=== PATIENT | male | born 1945 | race Hispanic/Latino ===

== ENCOUNTER → 2017-11-02 | Outpatient (CLI) | payer OTHER ==
[~2017-11-02] MED LIST: ASPI-1197 PO; ATOR10TA PO; METO-391 PO; RIVA20TA PO
== END | disposition home or self-care (01) ==
LOC: OIH 09:08
PROVIDERS: ATTEND Internal Medicine
DX: I70.90 Unspecified atherosclerosis (principal); I10 Essential (primary) hypertension
CPT/HCPCS: 71046

== ENCOUNTER → 2017-12-02 | Outpatient (CLI) | payer OTHER | END | disposition home or self-care (01) | LOC: SHCH 10:28 | PROVIDERS: ATTEND Internal Medicine Cardiovascular Disease | DX: I10 Essential (primary) hypertension (principal); I35.0 Nonrheumatic aortic (valve) stenosis; I35.1 Nonrheumatic aortic (valve) insufficiency | CPT/HCPCS: 93306 ==

== ENCOUNTER → 2018-07-26 | Outpatient (CLI) | payer OTHER | END | disposition home or self-care (01) | LOC: SHCH 10:00 | PROVIDERS: ATTEND Internal Medicine Cardiovascular Disease | DX: I35.0 Nonrheumatic aortic (valve) stenosis (principal); I11.9 Hypertensive heart disease without heart failure; R00.0 Tachycardia, unspecified; Z95.0 Presence of cardiac pacemaker | CPT/HCPCS: 93306 ==

== ENCOUNTER 2018-10-06 08:32 | Observation (INO) | payer OTHER ==
[2018-10-04 11:15] VITALS: BP 148/61
[2018-10-04 11:28] LABS: BASOPHILS % (AUTO) 1.3 % (0.0-5.0); EOSINOPHILS % (AUTO) 4.8 % (0.0-8.0); HEMATOCRIT 46.3 % (42-54); LYMPHOCYTES % (AUTO) 33.7 % (21.0-51.0); MEAN CORPUSCULAR HEMOGLOBIN 32.3 pg (27.0-33.0); MEAN CORPUSCULAR VOLUME 94.8 fL (79-99); MONOCYTES % (AUTO) 9.6 % (3.0-13.0); NEUTROPHILS % (AUTO) 50.6 % (40.0-77.0); NUCLEATED RED BLOOD CELLS 0.1 % (0.0-0.19); PLATELET COUNT (AUTO) 225 K/uL (130-400); RED BLOOD CELL COUNT(AUTO) 4.88 MIL/uL (4.50-6.20); RED CELL DISTRIBUTION WIDTH 14.4 % (11.0-15.5); WHITE BLOOD COUNT (AUTO) 7.6 K/uL (4.8-10.8)
[2018-10-04 11:38] LABS: CREATININE 1.1 mg/dL (0.5-1.5); POTASSIUM 4.6 mmol/L (3.5-5.1)
[2018-10-04 12:12] LABS: INR 0.99 (0.85-1.15); PARTIAL THROMBOPLASTIN TIME 27.8 SEC (26.3-35.5); PROTHROMBIN TIME 10.4 SEC (9.6-11.6)
[~2018-10-06] VITALS: Ht 172.7 cm; Wt 119.1 kg
[2018-10-06] VITALS (11 sets, daily range): BP systolic 109–148; BP diastolic 54–69
[~2018-10-06 08:32] MED LIST changes: +ASCO10007 PO; -ASPI-1197 PO; -ATOR10TA PO; +ATOR40TA71 PO; +CHOL200026 PO; +FISH1CAP63 PO; +GLUC1TAB21 PO; +MAGN400T40 PO; +MULT1TAB70 PO; +VITA1TAB22 PO
[2018-10-06] MEDS ORDERED: SODIUM CHLORIDE 0.9% 1000ML 1,000 ML IV ONE (09:53)
[2018-10-06] MEDS ORDERED: IODIXANOL 320 MG/ML 100 ML VIAL ONE (11:06)
[2018-10-06] MEDS ORDERED: MEPERIDINE-PF 25 MG/ML SYG ONE ×2 (11:06→12:31)
[2018-10-06] MEDS ORDERED: MIDAZOLAM HCL 1 MG/ML 2ML VIAL ONE ×3 (11:06→12:31)
[2018-10-06] MEDS ORDERED: VANCOMYCIN 1GM+NS 250ML 500 ML IV ONE (11:06)
[2018-10-06] MEDS ORDERED: LIDOCAINE HCL 1% MDV 50ML VIAL ONE (11:06)
[2018-10-06] MEDS ORDERED: BUPIVACAINE/PF 0.25% 30ML VIAL IJ ONE (11:08)
[2018-10-06] MEDS ORDERED: OCTYL 2-CYANOACRYLATE 1 EACH TP ONE (12:30)
[2018-10-06] MEDS ORDERED: ACETAMINOPHEN 325 MG TAB PO PRN (13:15)
[2018-10-06] MEDS ORDERED: ACETAMINOPHEN-CODEINE 300/30MG TAB PO PRN (13:15)
--- NOTE | 2018-10-06 15:15 | NUR ---
REPORT REPORT GIVEN TO HAVEN CORRALES
--- NOTE | 2018-10-06 15:45 | NUR ---
REPORT REPORT GIVEN TO NURA RN AT TELEMETRY FLOOR,
--- NOTE | 2018-10-06 15:55 | NUR ---
TRANSFER PT TRANSFERED TO ROOM 226, PT AWAKE AND ALERT IN BED, NO DISTRESS NOTED. DRESSING TO LEFT UPPER CHEST DRY AND INTACT, SPOUSE ACCOMPANIED PATIENT
--- NOTE | 2018-10-06 16:00 | NUR ---
STATUS PT RECEIVED FROM DAY VIA BED. S/P BiV ICD UPGRADE BY DR Yesenia CASAS. LT UPPER CHEST PRESSURE DSG DRY & INTACT. NO DRAINAGE NOTED. SLING TO LT ARM. LT ARM PRECAUTIONS REINFORCED. STATES UNDERSTANDING. INFORMED TO MAINTAIN BEDREST UNTIL AM. [place]. NO SOB. NO DISTRESS NOTED. DENIES INCISIONAL PAIN. TELE: A PACED 60s. ORIENTED TO RM. INSTRUCTED TO CALL FOR ASSISTANCE. CALL ZAFAR W/IN REACH. @ BEDSIDE.
--- NOTE | 2018-10-06 20:50 | NUR ---
ASSESSMENT PATIENT IS AAOX3. PATIENT DENIES PAIN AND SHORTNESS OF BREATH. ON ROOM AIR. RESPIRATIONS UNLABORED. AV PACED HR 72. S/P BIV ICD UPGRADE. LT CHEST DRESSING DRY AND INTACT. SLING IN PLACE. REMINDED PATIENT OF LT ARM RESTRICTIONS. PATIENT VERBALIZED UNDERSTANDING. SEE DOCUMENTATION FOR FULL ASSESSMENT. CALL LIGHT WITHIN REACH. INSTRUCTED PATIENT TO CALL IF ASSISTANCE IS NEEDED.
[2018-10-06] MEDS: METOPROLOL SUCCINATE 50 MG PO SCH (20:52)
[2018-10-06] MEDS: MULTIVITAMIN TABLET PO SCH (20:53)
[2018-10-06] MEDS ORDERED: ATORVASTATIN CALCIUM 40 MG TABLET PO SCH (21:00)
[2018-10-06] MEDS ORDERED: LOSARTAN 50 MG TABLET PO SCH (21:00)
[2018-10-06] MEDS ORDERED: VANCOMYCIN 1GM+NS 250ML 250 ML IV SCH ×2 (21:00→23:30)
[2018-10-07 03:00] VITALS: BP 133/73
[2018-10-07 07:06] LABS: APPEARANCE,URINE Clear (CLEAR); BILIRUBIN,URINE Negative (NEGATIVE); COLOR,URINE Yellow (YELLOW); GLUCOSE, URINE (UA) Negative (NEGATIVE); KETONES,URINE Negative (NEGATIVE); LEUKOCYTE ESTERASE ,URINE Negative (NEGATIVE); NITRATE,URINE Negative (NEGATIVE); OCCULT BLOOD,URINE Negative (NEGATIVE); PROTEIN,URINE Negative (NEGATIVE); UROBILINOGEN,URINE 0.2 mg/dL (0.2-1.0)
--- NOTE | 2018-10-07 07:45 | NUR ---
AM ASSESSMENT PT LAYING IN BED, HOB ELEVATED 30 DEGREES, WATCHING TV. [place]. A/O X 3. NO SOB. NO DISTRESS NOTED. DENIES CHEST PAIN OR DISCOMFORT. DENIES PALPITATIONS. DENIES INCISIONAL PAIN. C/O OF "TWITCHING" TO RT SIDE, MD AWARE. PER DR Yesenia CASAS, DEVICE TO BE CHECKED/ADJUSTED @ OFFICE IF TWITCHING PERSISTS. TELE: A PACED 60s. DENIES N/V AND/OR DIARRHEA. UP W/ASSISTANCE. LT ARM PRECAUTIONS REINFORCED. STATES UNDERSTANDING. LT UPPER CHEST DSG DRY & INTACT. NO BLEEDING, NO HEMATOMA NOTED. INSTRUCTED TO CALL FOR ASSISTANCE. CALL ZAFAR W/IN REACH.
[2018-10-07 08:23] VITALS: BP 130/72
[2018-10-07] MEDS: MULTIVITAMIN TABLET PO SCH (08:50)
[2018-10-07] MEDS: METOPROLOL SUCCINATE 50 MG PO SCH (08:51)
[2018-10-07] MEDS ORDERED: FISH OIL 1000 MG/CAP PO SCH (09:00)
[2018-10-07] MEDS ORDERED: ASCORBIC ACID 500 MG TAB PO SCH (09:00)
[2018-10-07] MEDS ORDERED: ***HM***(Cholecalciferol (Vitamin D3) (Vitamin D3) 2,000 UNIT) PO SCH (09:00)
[2018-10-07] MEDS ORDERED: RIVAROXABAN 20 MG TABLET PO SCH (09:00)
[2018-10-07] MEDS ORDERED: MAGNESIUM OXIDE 400 MG TABLET PO SCH (09:00)
[2018-10-07] MEDS ORDERED: VITAMIN B COMPLEX 1 CAPSULE PO SCH (09:00)
[2018-10-07] MEDS ORDERED: GLUCOSAMINE-CHONDROITIN PO SCH (09:00)
--- NOTE | 2018-10-07 10:25 | NUR ---
DISCHARGE VERBAL & WRITTEN DISCHARGE INSTRUCTION REVIEWED & GIVEN TO PT & . PROPER CARE & ACTIVITY AFTER BiV ICD UPGRADE REVIEWED & REINFORCED. NEW PRESCRIBED MEDICATIONS REVIEWED. PRESCRIPTION GIVEN TO PT; SIGNED COPY PLACED IN CHART. F/U APPT INFO REVIEWED & HIGHLIGHTED ON DC PAPERWORK. IV DISCONTINUED. TELE KEVIN REMOVED. PT & TO GATHER PERSONAL BELONGINGS. WILL NOTIFY STAFF WHEN READY TO BE TAKEN TO PRIVATE VEHICLE.
--- NOTE | 2018-10-07 10:45 | NUR ---
DISCHARGE PT TAKEN TO PRIVATE VEHICLE VIA WC BY Theodore BOWMAN PCP, ACCOMPANIED BY . NO DISTRESS NOTED.
== END 2018-10-07 10:48 | disposition home or self-care (01) ==
LOC: DAH 08:32 → DAHIP 08:33 → 2DH 16:03
PROVIDERS: ADMIT Internal Medicine; ATTEND Internal Medicine
DX: Z45.02 Encounter for adjustment and management of automatic implantable cardiac defibrillator (principal); I44.1 Atrioventricular block, second degree; D68.59 Other primary thrombophilia; E66.01 Morbid (severe) obesity due to excess calories; E78.5 Hyperlipidemia, unspecified; G47.30 Sleep apnea, unspecified; I11.0 Hypertensive heart disease with heart failure; I50.42 Chronic combined systolic (congestive) and diastolic (congestive) heart failure; I25.10 Atherosclerotic heart disease of native coronary artery without angina pectoris; I35.0 Nonrheumatic aortic (valve) stenosis; I42.9 Cardiomyopathy, unspecified; I48.0 Paroxysmal atrial fibrillation; I82.501 Chronic embolism and thrombosis of unspecified deep veins of right lower extremity; I87.009 Postthrombotic syndrome without complications of unspecified extremity; I87.2 Venous insufficiency (chronic) (peripheral); Z82.49 Family history of ischemic heart disease and other diseases of the circulatory system; Z83.3 Family history of diabetes mellitus; Z86.711 Personal history of pulmonary embolism; Z95.810 Presence of automatic (implantable) cardiac defibrillator; Z79.899 Other long term (current) drug therapy
CPT/HCPCS: 33225; 33264; 36415; 71046; 80048; 81003; 82948; 85025; 85610; 85730; 87088; 93005; 96365; 96366; A4606; C1769 ×2; C1882; C1894; C1900; G0378 ×26; J2175 ×2; J2250 ×3; J3370 ×2; J3490 ×2; J7030; Q9967; 99156; 99157

== ENCOUNTER → 2019-08-23 | Outpatient (CLI) | payer OTHER | END | disposition home or self-care (01) | LOC: OIH 10:05 | PROVIDERS: ATTEND Internal Medicine | DX: I51.7 Cardiomegaly (principal); I10 Essential (primary) hypertension; Z95.0 Presence of cardiac pacemaker | CPT/HCPCS: 71045 ==

== ENCOUNTER → 2019-09-22 | Outpatient (CLI) | payer OTHER | END | disposition home or self-care (01) | LOC: SHCH 11:04 | PROVIDERS: ATTEND Internal Medicine Cardiovascular Disease | DX: I08.0 Rheumatic disorders of both mitral and aortic valves (principal) | CPT/HCPCS: 93306; 93356 ==

== ENCOUNTER → 2020-10-02 | Outpatient (CLI) | payer OTHER ==
[~2020-10-02] MED LIST changes: +ASCO100031 PO; -ASCO10007 PO; +MULT-660 PO; -MULT1TAB70 PO
== END | disposition home or self-care (01) ==
LOC: SHCH 15:01
PROVIDERS: ATTEND Internal Medicine Cardiovascular Disease
DX: I65.23 Occlusion and stenosis of bilateral carotid arteries (principal); I35.0 Nonrheumatic aortic (valve) stenosis; R09.89 Other specified symptoms and signs involving the circulatory and respiratory systems; R01.1 Cardiac murmur, unspecified
CPT/HCPCS: 93306; 93356; 93880

== ENCOUNTER 2021-10-01 09:02 | Day surgery (SDC) | payer OTHER ==
[2021-09-26 10:53] LABS: BASOPHILS % (AUTO) 0.8 % (0.0-5.0); LYMPHOCYTES % (AUTO) 24.6 % (21.0-51.0); MEAN CORPUSCULAR HEMOGLOBIN 30.1 pg (27.0-33.0); MEAN CORPUSCULAR HGB CONC 31.7 g/dL (32.0-36.0); MEAN CORPUSCULAR VOLUME 94.9 fL (79-99); MONOCYTES % (AUTO) 10.2 % (3.0-13.0); NEUTROPHILS % (AUTO) 61.9 % (40.0-77.0); PLATELET COUNT (AUTO) 295 K/uL (130-400); RED BLOOD CELL COUNT(AUTO) 4.95 MIL/uL (4.50-6.20); RED CELL DISTRIBUTION WIDTH 14.4 % (11.0-15.5); WHITE BLOOD COUNT (AUTO) 9.7 K/uL (4.8-10.8)
[2021-09-26 10:55] LABS: APPEARANCE,URINE Clear (CLEAR); BILIRUBIN,URINE Negative (NEGATIVE); COLOR,URINE Dark Yellow (YELLOW); GLUCOSE, URINE (UA) Negative (NEGATIVE); KETONES,URINE Negative (NEGATIVE); LEUKOCYTE ESTERASE ,URINE Trace (NEGATIVE); NITRATE,URINE Negative (NEGATIVE); OCCULT BLOOD,URINE Negative (NEGATIVE); PROTEIN,URINE Negative (NEGATIVE)
[2021-09-26 11:03] LABS: CREATININE 1.1 mg/dL (0.5-1.5); INR 1.06 (0.85-1.15); POTASSIUM 4.3 mmol/L (3.5-5.1); PROTHROMBIN TIME 11.5 SEC (9.6-11.6)
[2021-09-26 11:05] LABS: PARTIAL THROMBOPLASTIN TIME 56.5 SEC (26.3-35.5)
[2021-09-26 11:13] LABS: BACTERIA,URINE Rare /HPF (None Seen); RBC,URINE 0-1 /HPF (0-1); SQUAMOUS EPITHELIAL CELL,UR Rare /HPF (0-2); WBC,URINE 0-1 /HPF (0-1)
[2021-09-30 13:46] VITALS: BP 120/73
[2021-10-01] VITALS (10 sets, daily range): BP systolic 95–183; BP diastolic 62–84
[~2021-10-01] VITALS: Ht 172.7 cm; Wt 109.3 kg
[~2021-10-01 09:02] MED LIST changes: -ASCO100031 PO; +ATOR10 PO; -ATOR40TA71 PO; -CHOL200026 PO; -FISH1CAP63 PO; -GLUC1TAB21 PO; -MAGN400T40 PO; -METO-391 PO; +METO-408 PO; -MULT-660 PO; -VITA1TAB22 PO
[2021-10-01] MEDS ORDERED: 0.9%NACL 1000ML 1,000 ML IV ONE (09:56)
[2021-10-01] MEDS ORDERED: IOHEXOL 350 MG/ML 100ML INFUS..BTL IV ONE ×2 (12:37→13:37)
[2021-10-01] MEDS ORDERED: HEPARIN 10,000 UNIT/10ML (1,000 UNIT/ML) VIAL ONE (12:37)
[2021-10-01] MEDS ORDERED: MIDAZOLAM HCL 1 MG/ML 2ML VIAL ONE ×2 (12:37→13:03)
[2021-10-01] MEDS ORDERED: IOHEXOL-350 50ML VIAL IV ONE (12:37)
[2021-10-01] MEDS ORDERED: MEPERIDINE-PF 25 MG/ML SYG ONE ×2 (12:37→13:03)
[2021-10-01] MEDS ORDERED: SODIUM BICARB 50MEQ 50ML VIAL 50 ML ONE (12:37)
[2021-10-01] MEDS ORDERED: LIDOCAINE HCL 400MG/20ML VIAL ONE (12:38)
[2021-10-01] MEDS ORDERED: 0.9%NACL 10ML VIAL IVP SCH (14:30)
== END 2021-10-01 18:25 | disposition home or self-care (01) ==
LOC: DAH 09:02
PROVIDERS: ATTEND Internal Medicine Cardiovascular Disease
DX: I35.0 Nonrheumatic aortic (valve) stenosis (principal); I25.10 Atherosclerotic heart disease of native coronary artery without angina pectoris; Q24.5 Malformation of coronary vessels; I11.0 Hypertensive heart disease with heart failure; I50.42 Chronic combined systolic (congestive) and diastolic (congestive) heart failure; I42.9 Cardiomyopathy, unspecified; M19.90 Unspecified osteoarthritis, unspecified site; E78.5 Hyperlipidemia, unspecified; E66.9 Obesity, unspecified; Z68.37 Body mass index [BMI] 37.0-37.9, adult; Z88.0 Allergy status to penicillin; Z86.718 Personal history of other venous thrombosis and embolism; Z79.01 Long term (current) use of anticoagulants
CPT/HCPCS: 36415; 71045; 80048; 81001; 85025; 85610; 85730; 93005; 93460; A4215; A4216; A4221; A4222; A4223 ×3; A4606; A4663; C1760; C1769 ×5; C1893; C1894 ×3; J1644; J2175 ×2; J2250 ×2; J3490 ×2; J7030; Q9965; Q9967 ×2; 99156; 99157

== ENCOUNTER → 2021-11-05 | Outpatient (CLI) | payer OTHER ==
[~2021-11-05] MED LIST changes: +IOHEXOL 350 MG/ML 100ML INFUS..BTL IV ONE
== END | disposition home or self-care (01) ==
LOC: RAH 08:18
PROVIDERS: ATTEND Internal Medicine Cardiovascular Disease
DX: I25.10 Atherosclerotic heart disease of native coronary artery without angina pectoris (principal); I77.810 Thoracic aortic ectasia; I35.0 Nonrheumatic aortic (valve) stenosis; K76.0 Fatty (change of) liver, not elsewhere classified; I70.8 Atherosclerosis of other arteries; I72.3 Aneurysm of iliac artery; Z95.0 Presence of cardiac pacemaker
CPT/HCPCS: 74174; 75574; Q9967

== ENCOUNTER 2021-11-26 14:27 | Emergency (ER) | payer OTHER ==
[~2021-11-26] VITALS: Ht 172.7 cm; Wt 108.9 kg
[~2021-11-26 14:27] MED LIST changes: -IOHEXOL 350 MG/ML 100ML INFUS..BTL IV ONE
[2021-11-26 15:54] LABS: BASOPHILS % (AUTO) 0.4 % (0.0-5.0); EOSINOPHILS % (AUTO) 2.3 % (0.0-8.0); HEMATOCRIT 46.6 % (42-54); LYMPHOCYTES % (AUTO) 25.5 % (21.0-51.0); MEAN CORPUSCULAR HEMOGLOBIN 29.5 pg (27.0-33.0); MEAN CORPUSCULAR HGB CONC 32.2 g/dL (32.0-36.0); MEAN CORPUSCULAR VOLUME 91.7 fL (79-99); MONOCYTES % (AUTO) 10.1 % (3.0-13.0); NEUTROPHILS % (AUTO) 61.4 % (40.0-77.0); PLATELET COUNT (AUTO) 216 K/uL (130-400); RED BLOOD CELL COUNT(AUTO) 5.08 MIL/uL (4.50-6.20); RED CELL DISTRIBUTION WIDTH 14.6 % (11.0-15.5); WHITE BLOOD COUNT (AUTO) 9.7 K/uL (4.8-10.8)
[2021-11-26 16:05] LABS: POTASSIUM 4.1 mmol/L (3.5-5.1)
[2021-11-26 16:08] LABS: INR 1.07 (0.85-1.15); PROTHROMBIN TIME 11.6 SEC (9.6-11.6)
[2021-11-26 16:09] LABS: BILIRUBIN,TOTAL 0.8 mg/dL (0.2-1.0); PARTIAL THROMBOPLASTIN TIME 31.9 SEC (26.3-35.5)
[2021-11-26] MEDS ORDERED: RIVAROXABAN 15 MG TABLET PO ONE (16:30)
[2021-11-26] MEDS ORDERED: RIVAROXABAN 20 MG TABLET ONE (16:50)
[2021-11-26 17:12] VITALS: BP 136/87
== END 2021-11-26 17:37 | disposition home or self-care (01) ==
LOC: EDH 14:27
DX: L03.115 Cellulitis of right lower limb (principal); I82.501 Chronic embolism and thrombosis of unspecified deep veins of right lower extremity; I35.0 Nonrheumatic aortic (valve) stenosis; Z88.0 Allergy status to penicillin; Z79.899 Other long term (current) drug therapy; Z95.810 Presence of automatic (implantable) cardiac defibrillator; Z98.890 Other specified postprocedural states
CPT/HCPCS: 36415; 80053; 85025; 85610; 85730; 93970

== ENCOUNTER 2022-01-06 11:50 | Emergency (ER) | payer OTHER ==
[~2022-01-06] VITALS: Ht 172.7 cm; Wt 108.9 kg
[2022-01-06 11:55] VITALS: BP 114/62
== END 2022-01-06 12:40 | disposition home or self-care (01) ==
LOC: EDH 11:50
DX: I83.892 Varicose veins of left lower extremity with other complications (principal); Z88.0 Allergy status to penicillin; Z79.899 Other long term (current) drug therapy; Z98.890 Other specified postprocedural states

== ENCOUNTER → 2022-03-12 | Outpatient (CLI) | payer OTHER | END | disposition home or self-care (01) | LOC: RAH 08:13 | PROVIDERS: ATTEND Internal Medicine | DX: K76.0 Fatty (change of) liver, not elsewhere classified (principal); R10.11 Right upper quadrant pain | CPT/HCPCS: 76700 ==

== ENCOUNTER → 2022-04-28 | Outpatient (CLI) | payer OTHER | END | disposition home or self-care (01) | LOC: OIH 14:07 | PROVIDERS: ATTEND Internal Medicine Cardiovascular Disease | DX: I08.0 Rheumatic disorders of both mitral and aortic valves (principal); I11.9 Hypertensive heart disease without heart failure; E78.5 Hyperlipidemia, unspecified; Z95.2 Presence of prosthetic heart valve | CPT/HCPCS: 93306 ==

== ENCOUNTER → 2023-08-25 | Outpatient (CLI) | payer OTHER | END | disposition home or self-care (01) | LOC: SHCH 09:32 | PROVIDERS: ATTEND Internal Medicine Cardiovascular Disease | DX: I08.0 Rheumatic disorders of both mitral and aortic valves (principal); I10 Essential (primary) hypertension; E78.5 Hyperlipidemia, unspecified | CPT/HCPCS: 93306 ==

== ENCOUNTER 2025-01-19 12:11 | Inpatient (IN) | payer OTHER ==
[~2025-01-19] VITALS: Ht 160 cm; Wt 101.2 kg
--- NOTE | 2025-01-19 12:23 | EKG ---
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
[2025-01-19 12:51] LABS: BASOPHILS # (AUTO) 0.08 K/uL (0.00-0.20); BASOPHILS % (AUTO) 0.7 % (0.0-5.0); EOSINOPHILS # (AUTO) 0.38 K/uL (0.00-0.70); EOSINOPHILS % (AUTO) 3.5 % (0.0-8.0); HEMATOCRIT 44.6 % (42-54); IMMATURE GRANULOCYTE ABSOLUTE 0.07 K/uL (0-1); LYMPHOCYTES # (AUTO) 1.8 K/uL (1.0-4.8); LYMPHOCYTES % (AUTO) 16.3 % (21.0-51.0); MEAN CORPUSCULAR HEMOGLOBIN 30.5 pg (27.0-33.0); MEAN CORPUSCULAR HGB CONC 32.5 g/dL (32.0-36.0); MEAN CORPUSCULAR VOLUME 93.7 fL (79-99); MONOCYTES # (AUTO) 0.7 K/uL (0.1-1.0); MONOCYTES % (AUTO) 6.3 % (3.0-13.0); NEUTROPHILS # (AUTO) 7.9 K/uL (1.8-7.7); NEUTROPHILS % (AUTO) 72.6 % (40.0-77.0); PLATELET COUNT (AUTO) 340 K/uL (130-400); RED BLOOD CELL COUNT(AUTO) 4.76 MIL/uL (4.50-6.20); RED CELL DISTRIBUTION WIDTH 14.7 % (11.0-15.5); WHITE BLOOD COUNT (AUTO) 10.9 K/uL (4.8-10.8)
--- NOTE | 2025-01-19 12:57 | HMCIMG ---
Exam Type: CHEST 1VW Clinical Information: CHEST PAIN Comparison: None Findings: The lungs are clear of infiltrates. The heart is enlarged in size. The bony and soft tissue structures of the chest are unremarkable. Left cardiac pacemaker is noted with leads in place. Impression: Clear lungs.
[2025-01-19 13:04] LABS: CREATININE 1.1 mg/dL (0.5-1.3); POTASSIUM 4.9 mmol/L (3.5-5.1)
[2025-01-19 13:15] LABS: B-TYPE NATRIURETIC PEPTIDE 285 pg/mL (0-100)
--- NOTE | 2025-01-19 13:46 | ERN ---
ED Note History of Present Illness Stated Complaint: POSSIBLE HEART ATTACK Chief Complaint: Chest Pain Time Seen by MD: 12:16 Time Seen by Midlevel: 12:18 Dictation: 79-year-old male with a history of atrial fibrillation, pacemaker/defibrillator, cholesterol, high blood pressure coming in with complaints of diaphoretic, chest pain in bilateral arm weakness and right arm pain onset prior to arrival. Patient states pain was pressure-like. Patient states he was just walking to his car with the chest pain started. 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 Patient is currently not undergoing any treatment. Allergies: Coded Allergies: Penicillins (Unverified Allergy, Unknown, 01/08/16) Home Meds Reported Medications Metoprolol Succinate (Metoprolol Succinate) 25 Mg Tab.er.24h, 25 MG PO BID, TAB 09/30/21 Atorvastatin Calcium (LIPITOR) 10 Mg Tab, 10 MG PO DAILY, TAB 09/30/21 Rivaroxaban (Xarelto) 20 Mg Tablet, 20 MG PO HS, TAB 10/04/18 Past Medical History Past Medical History: A-Fib, CAD, Cancer, High Cholesterol, Hypertension Additional Past Medical Hx: BLOOD THINNERS, obesity Surgical History: Pacer/AICD, Other Surgical History Other: PENILE CA, AORTIC VALVE, KNEE, Family History: Negative Social History: Negative, Lives with family Review of System Dictation Constitutional: Negative for fever,chills, and weight loss Eyes: Negative for injury, pain,redness, and discharge ENT: Negative for injury,pain or swelling Cardiovascular: Complaining of chest pain Respiratory: Complaining of cough Abdomen/GI: Negative for abdominal pain, nausea, vomiting, diarrhea, and constipation Back: Negative for injury and pain : Negative for injury, bleeding and discharge MS/Extremity: Negative for injury and deformity Skin: Negative for rash, and discoloration Neuro: Negative for headache, weakness, numbness, tingling, and seizure Psych: Negative for suicide ideation, homicidal ideation, and hallucinations Review of Systems: was completed Initial Vital Sign VS Vital Signs Date Time Temp Pulse Resp B/P (MAP) Pulse Ox O2 Delivery O2 Flow Rate FiO2 01/19/25 12:18 97.3 79 20 132/71 99 Room Air 0 01/19/25 13:33 21 Physical Exam Dictation General: awake, alert, NAD Head/Face: Normocephalic, atraumatic Eyes: PERRL, EOMI, vision at baseline ENT: oral cavity clear, TMs clear, no signs of infection Neck: Trachea midline, supple, no nuchal rigidity Cardiovascular: RRR, normal S1/S2, No MRGs, no JVD Respiratory: CTAB, no respiratory distress, No rales or wheezes Abdomen: Soft, non-tender, non-distended, normal bowel sounds, no guarding or rebound. Skin: Warm, dry, normal turgor, no rash MS/Extremity: Pulses equal, no cyanosis, neurovascular intact, FROM Neuro: COAx4, GCS 15, strength 5/5, CN 2-12 intact, normal cerebellar exam, normal gait, Psych: Normal behavior, mood, and affect normal Results (Laboratory/Radiology) Laboratory/Radiology Laboratory Tests Test 01/19/25 12:41 White Blood Count 10.9 K/uL (4.8-10.8) H Red Blood Count 4.76 MIL/uL (4.50-6.20) Hemoglobin 14.5 g/dL (14.0-18.0) Hematocrit 44.6 % (42-54) Mean Corpuscular Volume 93.7 fL (79-99) Mean Corpuscular Hemoglobin 30.5 pg (27.0-33.0) Mean Corpuscular Hemoglobin Concent 32.5 g/dL (32.0-36.0) Red Cell Distribution Width 14.7 % (11.0-15.5) Platelet Count 340 K/uL (130-400) Mean Platelet Volume 10.3 fL (7.5-10.5) Immature Granulocyte % (Auto) 0.6 % (0-1) Neutrophils (%) (Auto) 72.6 % (40.0-77.0) Lymphocytes (%) (Auto) 16.3 % (21.0-51.0) L Monocytes (%) (Auto) 6.3 % (3.0-13.0) Eosinophils (%) (Auto) 3.5 % (0.0-8.0) Basophils (%) (Auto) 0.7 % (0.0-5.0) Neutrophils # (Auto) 7.9 K/uL (1.8-7.7) H Lymphocytes # (Auto) 1.8 K/uL (1.0-4.8) Monocytes # (Auto) 0.7 K/uL (0.1-1.0) Eosinophils # (Auto) 0.38 K/uL (0.00-0.70) Basophils # (Auto) 0.08 K/uL (0.00-0.20) Absolute Immature Granulocyte (auto 0.07 K/uL (0-1) Nucleated Red Blood Cells 0.0 % (0.0-0.19) Sodium Level 140 mmol/L (136-145) Potassium Level 4.9 mmol/L (3.5-5.1) Chloride Level 103 mmol/L (101-111) Carbon Dioxide Level 27 mmol/L (21-32) Blood Urea Nitrogen 16 mg/dL (7-18) Creatinine 1.1 mg/dL (0.5-1.3) Glomerular Filtration Rate Calc 68 mL/min (>90) Random Glucose 131 mg/dL (70-105) H Total Calcium 9.1 mg/dL (8.5-10.1) Total Creatine Kinase 66 U/L (21-232) # Troponin I High Sensitivity 20 ng/L (4-75) B-Type Natriuretic Peptide 285 pg/mL (0-100) H Labs Reviewed?: Yes ED Course ED Course Orders Procedure Category Date Status Time Vital Signs Per CPOE 01/19/25 Transmitted Routine 12:18 B-Type Natriuretic LAB 01/19/25 Complete Peptide 12:18 Chest 1vw RAD 01/19/25 Resulted 12:18 12 Lead Ekg Tracing- EKG 01/19/25 Complete Technical 12:18 Oxygen By Nc/Pulse Ox CPOE 01/19/25 Transmitted 12:18 Maintain Iv CPOE 01/19/25 Transmitted 12:18 Iv Insertion CPOE 01/19/25 Transmitted 12:18 Cardiac Monitoring CPOE 01/19/25 Transmitted 12:18 Pulse Oximetry With CPOE 01/19/25 Transmitted Vs And Prn 12:18 Cbc With Differential LAB 01/19/25 Complete 12:18 Activity: Br W/Brp CPOE 01/19/25 Transmitted With Assist 12:18 Creatine Kinase, Total LAB 01/19/25 Complete 12:18 Troponin I High LAB 01/19/25 Complete Sensitivity 12:18 Urinalysis Profile LAB 01/19/25 Logged 12:18 Basic Metabolic Panel LAB 01/19/25 Complete 12:18 Nitroglycerin 0.4mg PHA 01/19/25 In Process Sl Tab (Nitrostat) 14:00 Admit Orders ADM 01/19/25 Transmitted 14:01 Current Medications Medications (Trade) Dose Ordered Sig/Arvind Route PRN Reason Start Time Stop Time Status Last Admin Dose Admin Nitroglycerin (Nitrostat) 0.4 mg AD PRN SL CHEST PAIN 01/19/25 14:00 02/18/25 13:59 Vital Signs Date Time Temp Pulse Resp B/P (MAP) Pulse Ox O2 Delivery O2 Flow Rate FiO2 01/19/25 13:33 81 18 153/90 98 Room Air* 0 21 01/19/25 12:18 97.3 79 20 132/71 99 Room Air 0 HEART Score Response (Comments) Value History: Moderate suspicion (+1) 1 EKG: Normal 0 Age: > 65yrs (+2) 2 Risk Factors: 3+ risk factors (+2) 2 Initial Troponin: Normal limit (0) 0 Total 5 Medical Decision Making MDM MDM: 79-year-old male with a history of atrial fibrillation, pacemaker/defibrillator, cholesterol, high blood pressure coming in with complaints of diaphoretic, chest pain in bilateral arm weakness and right arm pain onset prior to arrival. Patient states pain was pressure-like. Patient states he was just walking to his car with the chest pain started. 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 Patient is c urrently not undergoing any treatment.CBC shows mild leukocytosis of 10, no anemia, no thrombocytopenia. Chemistry shows no electrolyte abnormality. BNP slightly elevated at 285. Chest x-ray shows no acute finding. Troponin is negative EKGs did not show any ST elevations or reciprocal changes. Heart score is five. Patient will be admitted to rule out ACS. Pending pacemaker to be interrogated.Spoke to taj Deshpande to admit. Differential diagnosis: ACS, costochondritis, pleurisy Rationale: Tests considered and ordered secondary to shared decision making include: labs, ECG and radiology Previous outside records reviewed: Old ER visits. Risk of complication and/or morbidity or mortality of patient management: None Medications-Per medication reconciliation Need for hospitalization: Patient does meet criteria for hospitalization. Need for emergency major/minor surgery: No There are no social concerns with this patient. Prescription drug management Prescriptions will include symptomatic care Patient's prior external medical records from other ER visits were reviewed by me as indicated. Prior testing and results from previous visits were reviewed. Prior tests were taken into account with medical decision making and resource utilization, independent historian/historians were used to obtain complete medical history. I independently interpreted the test that were performed, results were reviewed by me and considered findings on radiology if ordered. Medical management and examination interpretation discussions were had by me with other qualified healthcare professionals as indicated for the patient's care. DX & DISP Disposition: Inpatient Decision to Admit Date: Jan 19, 2025 Decision to Admit Time: 14:03 Departure Impression: Primary Impression: Chest pain Condition: Stable Referrals: STACIE CASTANEDA MD (PCP) I have reviewed the case, and I agree with, Diagnosis and Plan ISAIAH CRUMP NP Jan 19, 2025 13:46
--- NOTE | 2025-01-19 13:58 | NUR ---
[facility] CALL[facility], STATES THEY WILL FORWARD CALL TO FOOD INSPECTOR SO THAT HE MAY INTERROGATE DEVICE.
[2025-01-19] MEDS ORDERED: NITROGLYCERIN 0.4 MG SL TAB SL PRN (14:00)
--- NOTE | 2025-01-19 14:40 | NUR ---
[facility] DEVICE REP AT BEDSIDE, INTERROGTING DEVICE
--- NOTE | 2025-01-19 16:07 | NUR ---
DCP: HOME Pt lives with Monie Squires [phone] in their home. Pt uses a cane to ambulate. Pt does not have DME, home health, or provider services. Pt is able to complete ADLs independently. PCP is Dr. Antoine and uses [facility] for any RX needs. At [place] pt will go home and family will assist with transportation. Addendum: 01/19/25 at 1617 by OLIVIA ANN SS Amended: Links added.
[2025-01-19] MEDS ORDERED: CLOP75TA32 PO (16:15)
[2025-01-19] MEDS ORDERED: DABI150C PO (16:15)
[2025-01-19] MEDS ORDERED: METO-391 PO (16:18)
[2025-01-19 18:37] LABS: APPEARANCE,URINE CLOUDY (CLEAR); BILIRUBIN,URINE NEGATIVE (NEGATIVE); COLOR,URINE YELLOW (YELLOW); GLUCOSE, URINE (UA) NEGATIVE (NEGATIVE); KETONES,URINE NEGATIVE (NEGATIVE); LEUKOCYTE ESTERASE ,URINE 500 Leu/uL (NEGATIVE); NITRATE,URINE 2+ (NEGATIVE); OCCULT BLOOD,URINE MODERATE (NEGATIVE); PROTEIN,URINE NEGATIVE (NEGATIVE); UROBILINOGEN,URINE 0.2 mg/dL (0.2-1.0)
[2025-01-19 18:38] LABS: ADD UA MICROSCOPIC YES
[2025-01-19 18:42] LABS: BACTERIA,URINE MANY /HPF (None Seen); MUCUS,URINE RARE LPF (None Seen); SQUAMOUS EPITHELIAL CELL,UR RARE /HPF (0-2); WBC,URINE 51-100 /HPF (0-1)
[2025-01-19 20:25] VITALS: BP 140/55; PULSE 75; RESP 20; TEMP 98.1; O2SAT 97
[2025-01-19] MEDS ORDERED: IOHEXOL-350 75 ML VIAL IV ONE (22:16)
[2025-01-19] MEDS: ENOXAPARIN SODIUM 100 MG/1 ML SQ SCH (22:20)
[2025-01-20] VITALS (8 sets, daily range): BP systolic 114–137; BP diastolic 57–66; PULSE 79–82; RESP 16–20; TEMP 97.4–98.1; O2SAT 96–97
[2025-01-20 04:21] LABS: BASOPHILS # (AUTO) 0.09 K/uL (0.00-0.20); BASOPHILS % (AUTO) 0.8 % (0.0-5.0); EOSINOPHILS # (AUTO) 0.38 K/uL (0.00-0.70); EOSINOPHILS % (AUTO) 3.5 % (0.0-8.0); HEMATOCRIT 41.7 % (42-54); IMMATURE GRANULOCYTE ABSOLUTE 0.07 K/uL (0-1); LYMPHOCYTES # (AUTO) 2.6 K/uL (1.0-4.8); LYMPHOCYTES % (AUTO) 23.9 % (21.0-51.0); MEAN CORPUSCULAR HEMOGLOBIN 30.2 pg (27.0-33.0); MEAN CORPUSCULAR HGB CONC 32.6 g/dL (32.0-36.0); MEAN CORPUSCULAR VOLUME 92.5 fL (79-99); MONOCYTES # (AUTO) 0.9 K/uL (0.1-1.0); MONOCYTES % (AUTO) 7.8 % (3.0-13.0); NEUTROPHILS % (AUTO) 63.4 % (40.0-77.0); PLATELET COUNT (AUTO) 316 K/uL (130-400); RED BLOOD CELL COUNT(AUTO) 4.51 MIL/uL (4.50-6.20); RED CELL DISTRIBUTION WIDTH 14.7 % (11.0-15.5)
[2025-01-20 04:54] LABS: ALBUMIN 3.3 g/dL (3.5-5.0); BILIRUBIN,TOTAL 0.8 mg/dL (0.2-1.0); POTASSIUM 4.6 mmol/L (3.5-5.1); TOTAL PROTEIN, SERUM 7.1 g/dL (6.0-8.3)
[2025-01-20] MEDS ORDERED: REGADENOSON 0.4 MG/5 ML PF SYG IVP ONE ×2 (07:43)
[2025-01-20] MEDS: ASPIRIN 81MG CHEW TAB PO SCH (08:12)
[2025-01-20] MEDS: cloPIDOgrel 75MG TAB PO SCH (08:13)
--- NOTE | 2025-01-20 08:50 | HMCIMG ---
CT angiogram chest CLINICAL INDICATION: R/O COMPARISON: None. CT Dose Index (CTDI): 113.50 mGy Dose Length Product (DLP): 1408.10 total mGy PROTOCOL: Contrast: 100 cc of Isovue-370, injected IV, no complications Examination is done at 2.5 millimeter volumetric acquisition after contrast administration. Photography is done at 5 millimeter thick intervals for the thorax. FINDINGS: There is no evidence of pulmonary embolism. The airway is intact. The trachea and major bronchi are unremarkable. No pulmonary infiltrates or mass lesions are seen. No pleural effusions are identified. The exam of the pee and mediastinum is unremarkable. No evidence of hilar enlargement is seen. Prosthetic aortic valve seen in place. No significant brachiocephalic vascular abnormalities are seen. The heart is unremarkable. It is not enlarged. No significant coronary arterial calcifications are seen. There is no pericardial effusion. The rib cage appears unremarkable. The soft tissues of the chest wall are unremarkable. The dorsal spine shows no significant abnormalities. Limited evaluation of the upper abdomen demonstrates no gross abnormalities. IMPRESSION: No evidence of pulmonary embolism. Clear lungs. This study was performed using dose reduction techniques to include automated exposure control and/or adjustment of the mA and/or kV according to patient size.
--- NOTE | 2025-01-20 13:32 | PN ---
PROGRESS NOTE PROGRESS NOTE DATE OF PROGRESS NOTE: 01/20/25 SUBJECTIVE: Patient has no further chest pain CT chest of the PE protocol is pending and he has history of DVT VITAL SIGNS Vital Signs Date Time Temp Pulse Resp B/P (MAP) Pulse Ox O2 Delivery O2 Flow Rate FiO2 01/20/25 12:00 97.9 81 19 137/60 99 Room Air 01/19/25 20:25 0 21 PHYSICAL EXAM: Head/Face: Normocephalic, atraumatic Eyes: PERRL, EOMI, vision at baseline ENT: oral cavity clear, TMs clear, no signs of infection Neck: Trachea midline, supple, no nuchal rigidity Cardiovascular: RRR, normal S1/S2, No MRGs, no JVD Respiratory: CTAB, no respiratory distress, No rales or wheezes Abdomen: Soft, non-tender, non-distended, normal bowel sounds, no guarding or rebound. Skin: Warm, dry, normal turgor, no rash MS/Extremity: Pulses equal, no cyanosis, neurovascular intact, FROM Neuro: COAx4, GCS 15, strength 5/5, CN 2-12 intact, normal cerebellar exam, normal gait, Psych: Normal behavior, mood, and affect normal LABORATORY: Laboratory Result(s) Test 01/19/25 18:30 01/19/25 18:41 01/20/25 04:00 Urine Color YELLOW (YELLOW) Urine Appearance CLOUDY (CLEAR) Urine pH 5.0 (5.0-8.0) Urine Specific [place] 1.014 (1.001-1.031) Urine Protein NEGATIVE mg/dL (NEGATIVE) Urine Glucose (UA) NEGATIVE mg/dL (NEGATIVE) Urine Ketones NEGATIVE mg/dL (NEGATIVE) Urine Occult Blood MODERATE (NEGATIVE) Urine Nitrate 2+ (NEGATIVE) Urine Bilirubin NEGATIVE mg/dL (NEGATIVE) Urine Urobilinogen 0.2 mg/dL (0.2-1.0) Urine Leukocyte Esterase 500 Tank/uL (NEGATIVE) Urine RBC 11-25 /HPF (0-1) Urine WBC 51-100 /HPF (0-1) Urine Squamous Epithelial Cells RARE /HPF (0-2) Urine Bacteria MANY /HPF (None Seen) Urine Hyaline Casts 2-5 /LPF (0-1 /LPF) Troponin I High Sensitivity 27 ng/L (4-75) White Blood Count 11.0 K/uL (4.8-10.8) Red Blood Count 4.51 MIL/uL (4.50-6.20) Hemoglobin 13.6 g/dL (14.0-18.0) Hematocrit 41.7 % (42-54) Mean Corpuscular Volume 92.5 fL (79-99) Mean Corpuscular Hemoglobin 30.2 pg (27.0-33.0) Mean Corpuscular Hemoglobin Concent 32.6 g/dL (32.0-36.0) Red Cell Distribution Width 14.7 % (11.0-15.5) Platelet Count 316 K/uL (130-400) Mean Platelet Volume 10.3 fL (7.5-10.5) Immature Granulocyte % (Auto) 0.6 % (0-1) Neutrophils (%) (Auto) 63.4 % (40.0-77.0) Lymphocytes (%) (Auto) 23.9 % (21.0-51.0) Monocytes (%) (Auto) 7.8 % (3.0-13.0) Eosinophils (%) (Auto) 3.5 % (0.0-8.0) Basophils (%) (Auto) 0.8 % (0.0-5.0) Neutrophils # (Auto) 7.0 K/uL (1.8-7.7) Lymphocytes # (Auto) 2.6 K/uL (1.0-4.8) Monocytes # (Auto) 0.9 K/uL (0.1-1.0) Eosinophils # (Auto) 0.38 K/uL (0.00-0.70) Basophils # (Auto) 0.09 K/uL (0.00-0.20) Absolute Immature Granulocyte (auto 0.07 K/uL (0-1) Nucleated Red Blood Cells 0.0 % (0.0-0.19) Sodium Level 145 mmol/L (136-145) Potassium Level 4.6 mmol/L (3.5-5.1) Chloride Level 108 mmol/L (101-111) Carbon Dioxide Level 27 mmol/L (21-32) Blood Urea Nitrogen 17 mg/dL (7-18) Creatinine 1.0 mg/dL (0.5-1.3) Glomerular Filtration Rate Calc 77 mL/min (>90) Random Glucose 95 mg/dL (70-105) Total Calcium 9.1 mg/dL (8.5-10.1) Total Bilirubin 0.8 mg/dL (0.2-1.0) Aspartate Amino Transf (AST/SGOT) 19 U/L (10-37) Alanine Aminotransferase (ALT/SGPT) 36 U/L (12-78) Alkaline Phosphatase 97 U/L (50-136) Total Protein 7.1 g/dL (6.0-8.3) Albumin 3.3 g/dL (3.5-5.0) Microbiology Results Date/Time Source Procedure Growth Status 01/19/25 18:30 Urine Clean Catch Clean Catch Midstream Bacterial ID and Susceptibility - Preliminary Resulted INPATIENT MEDS: Current Medications Medications Dose Ordered Sig/Arvind Start Time Stop Time Status Last Admin Nitroglycerin 0.4 mg AD PRN 01/19/25 14:00 02/18/25 13:59 Aspirin 81 mg DAILY 01/20/25 09:00 02/19/25 08:59 Clopidogrel Bisulfate 75 mg DAILY 01/20/25 09:00 02/19/25 08:59 Enoxaparin Sodium 100 mg BID 01/19/25 22:30 02/18/25 22:29 01/19/25 22:25 PROBLEM LIST: (1) Chronic systolic congestive heart failure, NYHA class 3 ICD Code: I50.22 - Chronic systolic (congestive) heart failure (2) Recurrent ventricular tachycardia ICD Code: I47.2 - Ventricular tachycardia (3) Acquired hypercoagulable state ICD Code: D68.59 - Other primary thrombophilia (4) Chronic deep vein thrombosis of right lower extremity ICD Code: I82.501 - Chronic embolism and thrombosis of unspecified deep veins of right lower extremity (5) Chronic deep vein thrombosis (DVT) of right lower extremity ICD Code: I82.501 - Chronic embolism and thrombosis of unspecified deep veins of right lower extremity (6) Chest pain ICD Code: R07.9 - Chest pain, unspecified PLAN: Patient has been off anticoagulation for penile cancer recently follow up with CT of the chest Underlying chest pain with cardiac history consulted Cardiology For urine follow up with urinalysis STACIE CASTANEDA MD Jan 20, 2025 13:32
--- NOTE | 2025-01-20 13:44 | HP ---
HISTORY OF PRESENT ILLNESS: The patient of Dr. Antoine came to the Emergency Room complaining of chest pain, left-sided radiated towards the left upper extremity that resolves after a few minutes. The patient denies any palpitations, dizziness, or diaphoresis. PAST MEDICAL HISTORY: Coronary artery disease, hypertension, dyslipidemia, atrial fibrillation, and penile cancer. PAST SURGICAL HISTORY: Knee replacement, aortic valve replacement. MEDICATIONS: Metoprolol, atorvastatin, and Xarelto. ALLERGIES: No known drug allergies. REVIEW OF SYSTEMS: Having no fever, chills, issues, loss of consciousness, no diplopia, dysarthria, or dysphonia. No cough, wheezes, or rhonchi. No palpitations. No dizziness. No abdominal pain. No nausea, vomiting, or diarrhea. No dysuria, urgency, or frequency. No rashes, petechiae, or ecchymosis. No hallucinations, delusions. No suicidal ideation. PHYSICAL EXAMINATION: GENERAL: He is awake, alert, and oriented in person, time, and place. VITAL SIGNS: Blood pressure 132/71, pulse 79, respirations 20. HEENT: Normocephalic, atraumatic. LUNGS: Clear to auscultation. HEART: S1, S2 are distant. ABDOMEN: Soft, nontender. EXTREMITIES: No clubbing, cyanosis. LABORATORY DATA: WBC count 10.9, hemoglobin 14.5, platelets 340. Sodium 140, potassium 4.9, BUN 16, creatinine 1.1, glucose 131, BNP 285, troponin 20. EKG was reported as without any ST elevation. ASSESSMENT AND PLAN: * Chest pain, possible acute coronary syndrome. The patient will be admitted for evaluation. Continue anticoagulation. Continue with dual antiplatelet therapy. Cardiac enzymes every 6 hours x3. Cardiology consultation. The patient will be transferred to Dr. Antoine's care. * Atrial fibrillation. Continue home medication. * Dyslipidemia. Continue current treatment. * Anticoagulation, continue with Xarelto. * Follow up with results. TID: [id number] RECEIPT: [id number]
--- NOTE | 2025-01-20 14:16 | CONS ---
[facility] CARDIOLOGY CONSULTATION NOTE Date Patient Seen: Jan 20, 2025 Time of Visit: 13:43 Reason for Consultation: [Atrial fibrillation] History of Present Illness: [79-year-old male patient that follows up in Cardiology Clinic with . 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 in [place], status post surgical procedure on 01-09-2025, the patient presents to emergency department endorsing anterior left-sided chest pain, diaphoresis bilateral arm weakness, patient described the pain as pressure-like. Presenting ECG shows atrial flutter, heart rate 80 beats per minute, V paced rhythm, troponins negative x2, creatinine 1.1, BNP 285, urinalysis revealed UTI, chest CT with no evidence of pulmonary embolism, device interrogation showed 100% atrial fibrillation but with no alarms, RV paced. upon our assessment at the bedside, the patient currently denies any chest pain, palpitations, dyspnea or any other anginal equivalents. Of note the patient has a prior admission to [facility] on 11/28/2024 with the patient presented with urinary urgency, ACS was ruled out at that time. Cardiology was consulted for ACS rule out Past Medical History: [Refer to chart ] Past Surgical History: [Refer to HPI ] Family History: [Refer to HPI ] Social History: [Refer to HPI ] Habits: [Never] smoker. [Denies] alcohol consumption. [Denies] illicit drug use Review of Systems: Review of12 point system was negative set per HPI Physical Examination: GENERAL: [No acute distress.] HEAD: [Normal with no signs of head trauma.] EYES: [PERRLA, EOMI, conjunctiva and sclera normal.] ENT: [Hearing grossly intact, normal oropharynx.] NECK: [Supple without JVD. There is no tenderness, lymphadenopathy, or masses. No thyromegaly. Normal carotid upstrokes without bruits.] LUNGS: [Clear breath sounds bilaterally. No wheezes, or rhonchi.] HEART: [Irregularly irregular. Normal S1 and S2 without mumurs, gallop or rub.] VASC: [Peripheral pulses +2 bilaterally.] ABD: [Bowel sounds normal, soft, nontender, no masses, no organomegaly. No audible bruits.] : [Not examined] LYMPH: [No lymphadenopathy noted.] EXT: [No clubbing, cyanosis or edema.] SKIN: [No rashes or lesions noted.] NEURO: [Awake, alert, and oriented x3. No focal sensory or strength deficits noted.] Vital Signs (last 8hr) Date Time Temp Pulse Resp B/P (MAP) Pulse Ox O2 Delivery O2 Flow Rate FiO2 01/20/25 12:00 97.9 81 19 137/60 99 Room Air 01/20/25 08:00 97.7 80 18 133/66 97 Room Air Laboratory: [ ] Hematology Labs: Test 01/20/25 04:00 Range/Units White Blood Count 11.0 H 4.8-10.8 K/uL Red Blood Count 4.51 4.50-6.20 MIL/uL Hemoglobin 13.6 L 14.0-18.0 g/dL Hematocrit 41.7 L 42-54 % Mean Corpuscular Volume 92.5 79-99 fL Mean Corpuscular Hemoglobin 30.2 27.0-33.0 pg Mean Corpuscular Hemoglobin Concent 32.6 32.0-36.0 g/dL Red Cell Distribution Width 14.7 11.0-15.5 % Platelet Count 316 130-400 K/uL Mean Platelet Volume 10.3 7.5-10.5 fL Immature Granulocyte % (Auto) 0.6 0-1 % Neutrophils (%) (Auto) 63.4 40.0-77.0 % Lymphocytes (%) (Auto) 23.9 21.0-51.0 % Monocytes (%) (Auto) 7.8 3.0-13.0 % Eosinophils (%) (Auto) 3.5 0.0-8.0 % Basophils (%) (Auto) 0.8 0.0-5.0 % Neutrophils # (Auto) 7.0 1.8-7.7 K/uL Lymphocytes # (Auto) 2.6 1.0-4.8 K/uL Monocytes # (Auto) 0.9 0.1-1.0 K/uL Eosinophils # (Auto) 0.38 0.00-0.70 K/uL Basophils # (Auto) 0.09 0.00-0.20 K/uL Absolute Immature Granulocyte (auto 0.07 0-1 K/uL Nucleated Red Blood Cells 0.0 0.0-0.19 % Chemistry Labs: Test 01/20/25 04:00 01/19/25 18:41 01/19/25 12:41 Range/Units Sodium Level 145 136-145 mmol/L Potassium Level 4.6 3.5-5.1 mmol/L Chloride Level 108 101-111 mmol/L Carbon Dioxide Level 27 21-32 mmol/L Blood Urea Nitrogen 17 7-18 mg/dL Creatinine 1.0 0.5-1.3 mg/dL Glomerular Filtration Rate Calc 77 >90 mL/min Random Glucose 95 70-105 mg/dL Total Calcium 9.1 8.5-10.1 mg/dL Total Bilirubin 0.8 0.2-1.0 mg/dL Aspartate Amino Transf (AST/SGOT) 19 10-37 U/L Alanine Aminotransferase (ALT/SGPT) 36 12-78 U/L Alkaline Phosphatase 97 50-136 U/L Total Protein 7.1 6.0-8.3 g/dL Albumin 3.3 L 3.5-5.0 g/dL Troponin I High Sensitivity 27 4-75 ng/L Total Creatine Kinase 66 # 21-232 U/L B-Type Natriuretic Peptide 285 H 0-100 pg/mL Diagnostics / Radiology: [Copy/Paste Echos/Imaging Report here] Assessment: Atrial fibrillation on anticoagulation Hypertension Hyperlipidemia CAD Chronic systolic heart failure (EF 30-35% by 2D echo November 2024) status post AICD placement 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 Recurrent DVT/PE, s/p IVC filter Plan: [#chest pain The patient history of coronary artery disease status post coronary angiogram with 50-60% RCA stenosis (2015) Patient presented with anterior left-sided chest pain described as pressure sensation with bilateral arm weakness Presenting ECG atrial fibrillation, rate controlled 80 beats per minute, V paced rhythm Troponins negative x2 Patient currently denying any cardiac symptoms or anginal equivalents at this time 2D echo from 11/28/2024 showed LVEF 30-35%, with inferior akinesia and global hypokinesis Due to the patient's ongoing symptoms and past medical history he will undergo a Lexiscan stress test pending results # chronic systolic heart failure status post AICD placement, with BIV ICD upgrade in 2018 ICM LVEF (30-35%, November 2023) . Compensated and euvolemic on exam Patient presented to the emergency department endorsing anterior left-sided chest pain 2D echo from 11/28/2024 showed LVEF 30-35%, with inferior akinesia and global hypokinesis Optimize GDMT: Strict I's and O's and daily weights, low-sodium diet Food restriction to 1.5 L daily, goal net-1-2 2 L per day Monitor/replace electrolytes as needed and keep on telemetry #Atrial fibrillation Review of telemetry shows rate controlled heart rate in the 70-80s Presenting ECG with atrial fibrillation V paced rhythm Patient denies any chest pain, palpitations, dyspnea or any other anginal equivalents Keep on telemetry, monitor replace electrolytes as needed Device interrogation showed 100% atrial fibrillation burden, no alarms, RV paced Start Pradaxa 100 mg every 12 hours, and Toprol-XL 25 mg daily Thank you for this consult cardiology continue to follow up, from recommendations pending Lexiscan stress test results Ramón Echevarria MD ] ATTESTATION BY PHYSICIAN I have seen and examined the patient, reviewed the above documentation, participated in medical decision making, made necessary modifications, and agree with the treatment plan as documented by my mid-level provider above. MD CHARLENE Walton JAMES R MD Jan 20, 2025 14:16
--- NOTE | 2025-01-20 17:04 | HMCSR ---
APPROVED REPORT Height: 5 ft 7in Weight: 222 lbs TEST INDICATIONS Chest Pain The imaging protocol used to acquire images was Rest Tc-99m/stress Tc-99m 1 day Consent: The procedure was explained and understood by the patient. Informerd consent was witnessed Chetan Mena RN First, low dose rest was performed then high dose stress. RESTING DATA: The resting ekg shows: Pacemaker Rest SPECT myocardial perfusion imaging was performed in supine position minutes following the intra venous injection of 11 mCi of Tc-99 Sestamibi. Time of rest injection: 06:50: Date: 01/20/2025 PHARMACOLOGIC STRESS: Pharmacologic stress test was performed by injecting regadenoson 0.4 mg IV push followed by the intra venous injection of 26 mCi of Tc-99 Sestamibi. Time of stress injection: 09:04: Date: 01/20/2025 Heart Rate at time of stress injection: 80 bpm. Gated Stress SPECT was performed 60 minutes after stress injection. The images were gated to evaluate regional wall motion and calculate left ventricular ejection fracti on. STRESS DETAILS Reason for Termination: Infusion complete Stress Symptoms: Dyspnea Max HR Achieved: 96 bpm % of APMHR Achieved: 80 Max Blood Pressure: 135/57 mmHg Stress ECG: Pacemaker
[2025-01-21 03:38] VITALS: BP 122/61; PULSE 76; RESP 20; TEMP 97.8
[2025-01-21] MEDS: ZOSYN 3.375GM +NS 50ML IV SCH (07:30)
[2025-01-21 08:00] VITALS: BP 137/66; PULSE 81; RESP 20; TEMP 97.7; O2SAT 96
--- NOTE | 2025-01-21 10:11 | PN ---
[facility] CARDIOLOGY PROGRESS NOTE Date Patient Seen: Jan 21, 2025 Time of Visit: 10:06 Interval History: [ no further angina] Physical Examination: GENERAL: [No acute distress.] HEAD: [Normal with no signs of head trauma.] EYES: [PERRLA, EOMI, conjunctiva and sclera normal.] ENT: [Hearing grossly intact, normal oropharynx.] NECK: [Supple without JVD. There is no tenderness, lymphadenopathy, or masses. No thyromegaly. Normal carotid upstrokes without bruits.] LUNGS: [Clear breath sounds bilaterally. No wheezes, or rhonchi.] HEART: [Irregularly irregular. Normal S1 and S2 without mumurs, gallop or rub.] VASC: [Peripheral pulses +2 bilaterally.] ABD: [Bowel sounds normal, soft, nontender, no masses, no organomegaly. No audible bruits.] : [Not examined] LYMPH: [No lymphadenopathy noted.] EXT: [No clubbing, cyanosis or edema.] SKIN: [No rashes or lesions noted.] NEURO: [Awake, alert, and oriented x3. No focal sensory or strength deficits noted.] Laboratory: [ ] Hematology Labs: Test 01/20/25 04:00 Range/Units White Blood Count 11.0 H 4.8-10.8 K/uL Red Blood Count 4.51 4.50-6.20 MIL/uL Hemoglobin 13.6 L 14.0-18.0 g/dL Hematocrit 41.7 L 42-54 % Mean Corpuscular Volume 92.5 79-99 fL Mean Corpuscular Hemoglobin 30.2 27.0-33.0 pg Mean Corpuscular Hemoglobin Concent 32.6 32.0-36.0 g/dL Red Cell Distribution Width 14.7 11.0-15.5 % Platelet Count 316 130-400 K/uL Mean Platelet Volume 10.3 7.5-10.5 fL Immature Granulocyte % (Auto) 0.6 0-1 % Neutrophils (%) (Auto) 63.4 40.0-77.0 % Lymphocytes (%) (Auto) 23.9 21.0-51.0 % Monocytes (%) (Auto) 7.8 3.0-13.0 % Eosinophils (%) (Auto) 3.5 0.0-8.0 % Basophils (%) (Auto) 0.8 0.0-5.0 % Neutrophils # (Auto) 7.0 1.8-7.7 K/uL Lymphocytes # (Auto) 2.6 1.0-4.8 K/uL Monocytes # (Auto) 0.9 0.1-1.0 K/uL Eosinophils # (Auto) 0.38 0.00-0.70 K/uL Basophils # (Auto) 0.09 0.00-0.20 K/uL Absolute Immature Granulocyte (auto 0.07 0-1 K/uL Nucleated Red Blood Cells 0.0 0.0-0.19 % Chemistry Labs: Test 01/20/25 14:29 01/20/25 04:00 01/19/25 12:41 Range/Units Troponin I High Sensitivity 27 4-75 ng/L Sodium Level 145 136-145 mmol/L Potassium Level 4.6 3.5-5.1 mmol/L Chloride Level 108 101-111 mmol/L Carbon Dioxide Level 27 21-32 mmol/L Blood Urea Nitrogen 17 7-18 mg/dL Creatinine 1.0 0.5-1.3 mg/dL Glomerular Filtration Rate Calc 77 >90 mL/min Random Glucose 95 70-105 mg/dL Total Calcium 9.1 8.5-10.1 mg/dL Total Bilirubin 0.8 0.2-1.0 mg/dL Aspartate Amino Transf (AST/SGOT) 19 10-37 U/L Alanine Aminotransferase (ALT/SGPT) 36 12-78 U/L Alkaline Phosphatase 97 50-136 U/L Total Protein 7.1 6.0-8.3 g/dL Albumin 3.3 L 3.5-5.0 g/dL Total Creatine Kinase 66 # 21-232 U/L B-Type Natriuretic Peptide 285 H 0-100 pg/mL Diagnostics / Radiology: [Copy/Paste Echos/Imaging Report here] Impression and Plan: [ Atrial fibrillation on anticoagulation Hypertension Hyperlipidemia CAD Chronic systolic heart failure (EF 30-35% by 2D echo November 2024) status post AICD placement 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 Recurrent DVT/PE, s/p IVC filter Plan: [#chest pain due to CAD The patient history of coronary artery disease status post coronary angiogram with 50-60% RCA stenosis (2015) Patient presented with anterior left-sided chest pain described as pressure sensation with bilateral arm weakness Presenting ECG atrial fibrillation, rate controlled 80 beats per minute, V paced rhythm Troponins negative x2 Patient currently denying any cardiac symptoms or anginal equivalents at this time 2D echo from 11/28/2024 showed LVEF 30-35%, with inferior akinesia and global hypokinesis Lexiscan with a large sized, moderate intensity fixed inferolateral perfusion defect suggestive of scar. No reversible ischemia. stopped lovenox c/w plavix 75 mg qd started metoprolol succ 50 mg qd and ranexa 500 mg bid for angina # chronic systolic heart failure status post AICD placement, with BIV ICD upgrade in 2018 ICM LVEF (30-35%, November 2023) . Compensated and euvolemic on exam Patient presented to the emergency department endorsing anterior left-sided chest pain 2D echo from 11/28/2024 showed LVEF 30-35%, with inferior akinesia and global hypokinesis Optimize GDMT: toprol xl 25 mg qd, optimize further in outpatient setting Strict I's and O's and daily weights, low-sodium diet Food restriction to 1.5 L daily, goal net-1-2 2 L per day Monitor/replace electrolytes as needed and keep on telemetry #Atrial fibrillation Review of telemetry shows rate controlled heart rate in the 70-80s Presenting ECG with atrial fibrillation V paced rhythm Patient denies any chest pain, palpitations, dyspnea or any other anginal equivalents Keep on telemetry, monitor replace electrolytes as needed Device interrogation showed 100% atrial fibrillation burden, no alarms, RV paced Start Pradaxa 100 mg every 12 hours, and Toprol-XL 25 mg daily i will sign off. he may follow up in two weeks with Dr Ghulam Echevarria MD ] DAVID ECHEVARRIA MD Jan 21, 2025 10:11
[2025-01-21] MEDS: DabiGATran 150MG CAPSULE PO SCH (10:51)
[2025-01-21] MEDS: RANOLAZINE 500 MG TAB.SR.12H PO SCH (10:51)
[2025-01-21 12:00] VITALS: BP 134/64; PULSE 81; RESP 17; TEMP 98
--- NOTE | 2025-01-21 13:57 | NUR ---
PATIENT DISCHARGED HOME ID BAND,IV AND TELE KEVIN REMOVED. DISCHARGE INSTRUCTIONS EXPLAINED AND GIVEN TO PATIENT. MEDICINE SCRIPT GIVEN TO PATIENT. PATIENT VERBALIZED UNDERSTANDING. BELONGING PACKED AND TAKEN BY PATIENT. WHEELED DOWN TO PRIVATE CAR.
--- NOTE | 2025-01-22 00:14 | DS ---
ADMITTING DIAGNOSES: Urinary tract infection, chest pain, angina and hypertension. DISCHARGE DIAGNOSES: Hypertension, stable; angina, negative cardiac workup and UTI. DISCHARGE MEDICATIONS: Ampicillin 500 mg 3 times a day for 1 week. HOSPITAL COURSE: The patient was hospitalized with angina and chest pain. Negative cardiac workup. UTI is symptomatic and the patient was given dose of Zosyn and subsequently ampicillin 500 three times a day. Rest of the diagnosis, hypertension, stable. TID: [id number] RECEIPT: [id number]
[2025-01-22] MEDS ORDERED: metOPROLol sucCINATE 25 MG TAB.SR.24H PO SCH (09:00)
[2025-01-22] MEDS ORDERED: metOPROLol sucCINATE 50 MG TAB.SR.24H PO SCH (09:00)
--- NOTE | 2025-01-23 15:07 | NUR ---
Transitional Phone Call Spoke to patient, states "doing fine." States continuing to take home medications as instructed; no questions or concerns with the medication. [facility] is driving up for a follow up appointment with urologist in [place] status post rule out penile cancer biopsy. [facility] will make the follow up appointment with PCP - Dr. Walter Antoine when he returns from [place]. No questions or concerns at this time.
== END 2025-01-21 13:16 | disposition home or self-care (01) | DRG 303 ==
LOC: EDH 12:11 → EDHIP 14:01 → 3DH 20:19
PROVIDERS: ADMIT Internal Medicine; ATTEND Internal Medicine
PROC: 4A12XM4 Monitoring of Cardiac Stress, External Approach (ICD-10-PCS; principal; 2025-01-20)
PROC: 3E073KZ Introduction of Other Diagnostic Substance into Coronary Artery, Percutaneous Approach (ICD-10-PCS; 2025-01-20)
DX: I25.119 Atherosclerotic heart disease of native coronary artery with unspecified angina pectoris (principal); N39.0 Urinary tract infection, site not specified; I47.20 Ventricular tachycardia, unspecified; I48.92 Unspecified atrial flutter; I50.22 Chronic systolic (congestive) heart failure; E78.00 Pure hypercholesterolemia, unspecified; Z96.659 Presence of unspecified artificial knee joint; I11.0 Hypertensive heart disease with heart failure; I48.91 Unspecified atrial fibrillation; Z85.49 Personal history of malignant neoplasm of other male genital organs; Z79.01 Long term (current) use of anticoagulants; Z95.2 Presence of prosthetic heart valve; Z95.810 Presence of automatic (implantable) cardiac defibrillator; Z95.828 Presence of other vascular implants and grafts; Z86.718 Personal history of other venous thrombosis and embolism
CPT/HCPCS: 36415; 71045; 71270; 78452; 80048; 80053; 81001; 82550; 83880; 84484; 85025; 87086; 87186; 93005; 93017; 99285; A9500; G0378; J1650; J2543; J2785; Q9967

== ENCOUNTER 2025-03-27 07:30 | Day surgery (SDC) | payer OTHER ==
[2025-03-24 13:10] LABS: IMMATURE GRANULOCYTE ABSOLUTE 0.05 K/uL (0-1); NUCLEATED RED BLOOD CELLS 0.0 % (0.0-0.19); PLATELET COUNT (AUTO) 250 K/uL (130-400); RED BLOOD CELL COUNT(AUTO) 4.70 MIL/uL (4.50-6.20); RED CELL DISTRIBUTION WIDTH 15.6 % (11.0-15.5); WHITE BLOOD COUNT (AUTO) 8.8 K/uL (4.8-10.8)
[2025-03-24 13:22] LABS: CREATININE 1.0 mg/dL (0.5-1.3); GLOMERULAR FILTR. RATE CALC 76.0 mL/min (>90); GLUCOSE,RANDOM 72.0 mg/dL (70-105); SODIUM SERUM 141.0 mmol/L (136-145); UREA NITROGEN, BLOOD 13.0 mg/dL (7-18)
[2025-03-24 13:23] LABS: INR 1.18 (0.85-1.15)
[2025-03-24 13:33] VITALS: BP 148/66; PULSE 80; RESP 16; TEMP 97.2
--- NOTE | 2025-03-24 14:03 | EKG ---
[facility] Test Date: 2025-03-24 Test Time: 12:57:33 Pat Name: CAMILO FUNK Department: [facility] Room: Gender: M [employer] Specialist: [id number] : 1945 Requested By: Desean CASAS Order Number: [id number] Reading MD: Tommy Blas Measurements Intervals [place] Rate: 80 P: 0 RI: 0 QRS: 263 QRSD: 154 T: 82 QT: 448 QTc: 517 Interpretive Statements Afib/flutter and ventricular-paced rhythm Biventricular paced rhythm Compared to ECG 01/19/2025 12:20:40 No significant changes Electronically Signed On 03-24-2025 16:06:51 CDT by Tommy Blas Please click the below link to view image of tracing.
[2025-03-27] VITALS (15 sets, daily range): BP systolic 115–151; BP diastolic 60–73; PULSE 80; RESP 11–22; TEMP 97.6–97.9
[~2025-03-27] VITALS: Ht 170.2 cm; Wt 103.4 kg
[~2025-03-27 07:30] MED LIST changes: +CLOP75TA32 PO; +DABI150C PO; +METO-391 PO; -METO-408 PO; +RANO10005 PO; -RIVA20TA PO
[2025-03-27] MEDS: 0.9%NACL 1000ML 1,000 ML IV SCH (08:26)
[2025-03-27] MEDS ORDERED: MIDAZOLAM HCL 1 MG/ML 2ML VIAL IVP ONE (08:30)
--- NOTE | 2025-03-27 09:07 | NUR ---
SASHA: LIDOCAINE VISCOUS 15 ML PO GIVEN AT 09:07 AFTER TIME OUT DONE. VERSED 2 MG IV GIVEN AT 09:08 AM AND 25 MCG IV OF FENTANYL GIVEN AT 09:08 AM FOR SEDATION SASHA PER ORDERS DR. Jaquelin CASAS. ADDITIONAL VERSED 2MG IV AND 25 MCG IV OF FENTANYL GIVEN AT 09:[address] Jaquelin CASAS. ATTEMPTED TO INSERT TUBE AT 09:13 AM UNSUCCESSFUL. MEDICATED WITH VERSED 1 MG IV AND FENTANYL 12.5 MCG IV AT 09:14 AM PER ORDERS.INSERTED TUBE ANT 09:23 AM AND SUCCESSFUL. PROCEDURE COMPLETED AT 09:25 AM, PT TOLERATED PROCEDURE WELL.
[2025-03-27] MEDS: LIDOCAINE HCL 2% VISCOUS 15 ML UDCUP PO ONE (09:43)
[2025-03-27] MEDS: MIDAZOLAM HCL 1 MG/ML 2ML VIAL IVP ONE (09:45)
--- NOTE | 2025-03-29 07:34 | HMCSR ---
APPROVED REPORT EXAM: Transesophageal echocardiogram with color flow Doppler. INDICATION ICD: Atrial Fibrillation Reason For Test : Rule out Intracardiac Thrombus. PROCEDURE After obtaining informed consent, patient underwent transesophageal echo in the Day Patient Room 16. 15 mL 2% Viscous Lidocaine was given as a topical anesthetic prior to the administration of the consc ious sedation. Type of Sedation: Conscious Sedation Sedation was administered by Giulia Luz RN. Sedation was achieved with refer to chart intravenously. Transesophageal probe was inserted and advanced into esophagus without difficulty by Dr. Parmar. SASHA was performed and images were obtained, probe was removed without complications. Throughout the procedure, the blood pressure, pulse oximetry, cardiac rhythm, and rate were monitored . The patient tolerated the procedure without adverse effects. Recovery from conscious sedation was une ventful and vital signs were stable. Left Ventricle Left ventricular cavity size is normal. LV thickness is normal. LVEF is 45-50%. Right Ventricle The right ventricle is normal size. Atria No thrombus is visualized in the left atrial appendage. No evidence of PFO by color flow Doppler. The right atrium size is normal. Aortic Valve Bioprosthetic aortic valve is present. Mild aortic perivalvular leak. There is no aortic valvular gaby nosis. Mitral Valve The mitral valve is normal in structure. Mitral regurgitation is moderate with a posteriorly directed coanda effect. There is no mitral valve stenosis. Tricuspid Valve The tricuspid valve is normal in structure and function. There is no tricuspid valve regurgitation no baltazar. Pulmonic Valve The pulmonary valve is normal in structure and function. There is no pulmonic valvular regurgitation. Great Vessels The aortic root is normal in size. Pericardium No pericardial effusion. Conclusion Left ventricular cavity size is normal. LVEF is 45-50%. The right ventricle is normal size. No evidence of PFO by color flow Doppler. No thrombus is visualized in the left atrial appendage. The right atrium size is normal. There is no aortic valvular stenosis. Bioprosthetic aortic valve is present. Mild aortic perivalvular leak. The mitral valve is normal in structure. Mitral regurgitation is moderate with a posteriorly directed coanda effect. There is no mitral valve stenosis. The tricuspid valve is normal in structure and function. The aortic root is normal in size. No pericardial effusion.
== END 2025-03-27 10:25 | disposition home or self-care (01) ==
LOC: DAH 07:30
PROVIDERS: ATTEND Internal Medicine Cardiovascular Disease
DX: I48.91 Unspecified atrial fibrillation (principal); I10 Essential (primary) hypertension; I43 Cardiomyopathy in diseases classified elsewhere; Z88.0 Allergy status to penicillin; I34.0 Nonrheumatic mitral (valve) insufficiency; E78.2 Mixed hyperlipidemia; E66.9 Obesity, unspecified; D68.69 Other thrombophilia; Z79.01 Long term (current) use of anticoagulants; R42 Dizziness and giddiness; Z95.810 Presence of automatic (implantable) cardiac defibrillator; Z96.652 Presence of left artificial knee joint; Z68.34 Body mass index [BMI] 34.0-34.9, adult; Z86.718 Personal history of other venous thrombosis and embolism; Z79.899 Other long term (current) drug therapy
CPT/HCPCS: 80048; 85025; 85610; 85730; 36415; 93005; 93312; 99152; 93325; A4663; J3010; J7030; J2250 ×2; A4615; A4215; A4657; A4222; A4221; A4216; A4606; A4223 ×3; J2312; J3490; G0500

== ENCOUNTER → 2025-04-21 | Outpatient (CLI) | payer OTHER ==
[~2025-04-21] MED LIST changes: +IOHEXOL 350 MG/ML 100ML INFUS..BTL IV ONE
--- NOTE | 2025-04-22 14:57 | HMCIMG ---
EXAM: CT Abdomen and Pelvis with and without IV contrast CLINICAL HISTORY: Malignant neoplasm of penis, unspecified TECHNIQUE: Axial computed tomography images of the abdomen and pelvis with and without intravenous contrast. CONTRAST: with and without intravenous contrast. COMPARISON: None provided. FINDINGS: Aortic valve repair status. LUNG BASES: The lung bases appear clear. No pleural effusions are seen. LIVER: Unremarkable. GALLBLADDER AND BILE DUCTS: The gallbladder appears within normal limits. No radioopaque gallstones are seen. No biliary ductal dilatation is evident. PANCREAS: Unremarkable. SPLEEN: Unremarkable. ADRENAL GLANDS: Unremarkable. KIDNEYS, URETERS, AND BLADDER: A non-obstructive 5.8 mm calculus in the lower calyx of the left kidney. Bilateral perinephric fat stranding that is concerning for renal parenchymal disease. The kidneys appear within normal limits. There is no hydronephrosis or hydroureter. STOMACH AND BOWEL: Unremarkable appearance of the stomach and bowel. No evidence of bowel obstruction. No evidence suggesting enteritis or colitis. APPENDIX: No evidence of acute appendicitis on CT examination. PERITONEUM: No free fluid. No free air. LYMPH NODES: Bilateral inguinal lymph nodes are mildly enlarged and uniformly enhancing; the largest is located in the right inguinal region and measures 16 x 15 mm. REPRODUCTIVE: Postoperative changes to the penis with mild soft tissue thickening at the distal penis. No evidence of an obvious enhancing lesion. The prostate is enlarged in size, measuring 40 cc. VASCULATURE: No evidence of abdominal aortic aneurysm. IVC filter in the infrarenal segment of the IVC. BONES: No aggressive appearing osseous lesion. No acute osseous pathology evident. Grade I anterolisthesis of the L4 over the L5 vertebra. Moderate to severe degenerative changes in the spine. IMPRESSION: 1. Bilateral mildly enlarged inguinal lymph nodes, largest 16 x 15 mm in right inguinal region. 2. Postoperative changes of the penis with mild distal soft tissue thickening. No obvious enhancing lesion. 3. No acute findings. /[place]
--- NOTE | 2025-04-22 15:17 | HMCIMG ---
EXAM: CT Femur, left, with and without IV contrast CLINICAL HISTORY: LT FEMUR. Malignant neoplasm of penis, unspecified TECHNIQUE: Axial images were acquired through the left Femur with and without IV contrast. Reformatted images were reviewed. COMPARISON: None provided. FINDINGS: BONES: No acute fracture is noted. There is no lytic or blastic lesion. JOINTS: There is no joint abnormality. No dislocation is noted. The femoral head is maintained in shape. SOFT TISSUES: The soft tissues are unremarkable. A few enlarged left inguinal nodes, the largest measuring 13 x 10 mm. USG SOS FNAC correlation suggested. Atherocalcific changes in the left common femoral artery, left superficial femoral artery, and left deep femoral artery with no significant occlusion. IMPRESSION: 1. No acute findings. 2. Few enlarged left inguinal nodes, largest measuring 13 x 10 mm. Ultrasound and FNAC correlation suggested. /[place]
--- NOTE | 2025-04-22 15:17 | HMCIMG ---
EXAM: CT Femur, right, with and without IV contrast CLINICAL HISTORY: RT FEMUR. Malignant neoplasm of penis, unspecified TECHNIQUE: Axial images were acquired through the right Femur with and without IV contrast. Reformatted images were reviewed. COMPARISON: None provided. FINDINGS: BONES: No acute fracture is noted. Degenerative changes in the neck of femur and greater trochanter of femur. There is no lytic or blastic lesion. JOINTS: There is no joint abnormality. No dislocation is noted. The femoral head is maintained in shape. SOFT TISSUES: The soft tissues are unremarkable. A few enlarged right inguinal nodes, the largest measuring 1.3 x 1.3 cm. USG SOS FNAC correlation. Atherocalcific changes in the right common femoral artery, superficial femoral artery, and deep femoral artery with no significant occlusion. IMPRESSION: 1. No acute osseous injury. 2. Enlarged right inguinal nodes, largest measuring 1.3 x 1.3 cm. Ultrasound and FNAC correlation suggested. /[place]
== END | disposition home or self-care (01) ==
LOC: RAH 07:42
PROVIDERS: ATTEND Urology
DX: C60.9 Malignant neoplasm of penis, unspecified (principal); R59.0 Localized enlarged lymph nodes; M17.9 Osteoarthritis of knee, unspecified; M17.11 Unilateral primary osteoarthritis, right knee; M43.16 Spondylolisthesis, lumbar region; M47.817 Spondylosis without myelopathy or radiculopathy, lumbosacral region; N40.0 Benign prostatic hyperplasia without lower urinary tract symptoms; I70.203 Unspecified atherosclerosis of native arteries of extremities, bilateral legs
CPT/HCPCS: 73702 ×2; 74178; Q9967

== ENCOUNTER 2025-05-17 07:40 | Day surgery (SDC) | payer OTHER ==
[2025-05-15 10:28] LABS: IMMATURE GRANULOCYTE ABSOLUTE 0.06 K/uL (0-1); NUCLEATED RED BLOOD CELLS 0.0 % (0.0-0.19); PLATELET COUNT (AUTO) 262 K/uL (130-400); RED BLOOD CELL COUNT(AUTO) 4.78 MIL/uL (4.50-6.20); RED CELL DISTRIBUTION WIDTH 15.0 % (11.0-15.5); WHITE BLOOD COUNT (AUTO) 9.0 K/uL (4.8-10.8)
[2025-05-15 10:35] VITALS: BP 150/63; PULSE 80; RESP 14; TEMP 97.5
[2025-05-15 10:35] LABS: CREATININE 1.1 mg/dL (0.5-1.3); GLOMERULAR FILTR. RATE CALC 68.0 mL/min (>90); GLUCOSE,RANDOM 96.0 mg/dL (70-105); SODIUM SERUM 140.0 mmol/L (136-145); UREA NITROGEN, BLOOD 15.0 mg/dL (7-18)
[2025-05-17] VITALS (9 sets, daily range): BP systolic 109–144; BP diastolic 48–66; PULSE 60–79; RESP 13–15; TEMP 98.2
[~2025-05-17] VITALS: Ht 170.2 cm; Wt 106.0 kg
[~2025-05-17 07:40] MED LIST changes: +AMIO200T73 PO; -IOHEXOL 350 MG/ML 100ML INFUS..BTL IV ONE; -RANO10005 PO; +RANO500T6 PO
--- NOTE | 2025-05-17 10:32 | NUR ---
PT D/C CARDIOVERTED [address] SÁNCHEZ FLETCHER NAD Addendum: 05/17/25 at 1353 by CJ RAMOS RN RN UNSUCCESSFUL PT REMAIN S IN A FIB WILL SYNCHRONIZE CARDIOVERTED 2ND TIME
--- NOTE | 2025-05-17 10:33 | NUR ---
PT D/C CARDIOVERTED 200JOULES 2ND TIME SUCCESSFUL NAD VSS Addendum: 05/17/25 at 1354 by CJ RAMOS RN RN SYNCHRONIZED CARDIOVERTED
--- NOTE | 2025-05-17 10:39 | EKG ---
[facility] Test Date: 2025-05-17 Test Time: 10:31:35 Pat Name: CAMILO FUNK [facility] Gender: M [employer]ger: [id number] : 1945 Requested By: KARIE POZO Order Number: [id number] Reading MD: Jake Perkins Measurements Intervals [place] Rate: 60 P: 158 MA: 124 QRS: 244 QRSD: 172 T: 73 QT: 497 QTc: 497 Interpretive Statements Atrial-ventricular dual-paced rhythm Biventricular paced rhythm Compared to ECG 05/17/2025 07:43:31 No significant changes Electronically Signed On 05-18-2025 06:56:40 CDT by Jake Perkins Please click the below link to view image of tracing.
--- NOTE | 2025-05-17 12:34 | PRN ---
Procedure Note Date of procedure: Diagnosis: Persistent atrial fibrillation Procedure: 1. Cardioversion 2. Pacemaker programming evaluation dual x2 Physician: Marek Pozo MD The patient was brought to the day patient area in a fasting state. The patient's pacemaker was interrogated and reprogrammed. Anesthesia was provided by the anesthesia service. Cardioversion was performed with a synchronized shock at 200 joules resulting in sinus rhythm. The patient tolerated the procedure well. The pacemaker was again interrogated and reprogrammed. Final diagnosis: Persistent atrial fibrillation, status post successful cardioversion Plan: 1. The patient will be discharged later today and will follow up with me in the office in approximately two weeks. MAREK POZO MD May 17, 2025 12:33
--- NOTE | 2025-05-17 13:01 | EKG ---
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
== END 2025-05-17 11:42 | disposition home or self-care (01) ==
LOC: DAH 07:40
PROVIDERS: ATTEND Internal Medicine Cardiovascular Disease
DX: I48.19 Other persistent atrial fibrillation (principal); I42.0 Dilated cardiomyopathy; I10 Essential (primary) hypertension; G45.3 Amaurosis fugax; E78.5 Hyperlipidemia, unspecified; E66.9 Obesity, unspecified; Z68.35 Body mass index [BMI] 35.0-35.9, adult; Z95.0 Presence of cardiac pacemaker; Z88.0 Allergy status to penicillin; Z79.899 Other long term (current) drug therapy; Z98.890 Other specified postprocedural states
CPT/HCPCS: 80048; 85025; 36415; 92960; 93280; 93005 ×2; A4223 ×3; A4620; A4215; A4222; A4221; A4663; A4216; A4606; J2704; J3490